=== PATIENT | female | born 1995 | race Caucasian/White ===

== ENCOUNTER 2025-06-30 08:06 | Emergency (ER) | payer OTHER, SELFPAY ==
--- NOTE | 2025-06-30 08:15 | ED_ITS ---
HPI - General Adult General Chief complaint: Skin/Abscess/Foreign Body Stated complaint: Skin/Abscess/Foreign Body Source: patient Mode of arrival: ambulatory Limitations: no limitations History of Present Illness HPI narrative: 30 y/o female presented for c/o spreading rash for about one month. Says it started on her buttock as a round raised bump. Since then has noticed bumps under the breast folds and the left side. Pt says she thought it was ringworm, so she applied lamisil cream which did improve the lesions. Pt states she used [facility] and was informed it is likely fungal and she may require an oral anti fungal as it is still spreading. Pt says she had been working out outside and admits to wearing the clothes more than once. She applied marli tree oil once rash started. Denies lip, tongue, or throat swelling, shortness of breath or wheezing. Denies changes to soap, detergent, lotion, or any other exposures. No one else in the house or any contacts with similar symptoms. Related Data Allergies Allergy/AdvReac Type Severity Reaction Status Date / Time Sulfa (Sulfonamide Allergy Intermediate Hives Verified 06/23/24 08:46 Antibiotics) Review of Systems Review of Systems: CONSTITUTIONAL: Denies body aches, fever, chills, or sweats. EYES: Denies visual changes, redness, or discharge. ENT: Denies rhinorrhea, congestion CARDIOVASCULAR: Denies chest pain, palpitations, or edema. RESPIRATORY: Denies cough or dyspnea. GASTROINTESTINAL: Denies abdominal pain, nausea, vomiting, or diarrhea. SKIN: reports rash MUSCULOSKELETAL: Denies back pain, joint pain, or myalgia. NEUROLOGIC: Denies headache, numbness, tingling, or weakness. 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 Family History Family History (Updated 06/10/24 @ 14:33 by Dyana Paulino CMA) Grandparent Diabetes mellitus Kidney failure Social History Social History (Updated 06/10/24 @ 14:33 by Dyana Paulino CMA) Smoking status: Never smoker Alcohol intake: current Substance use: current Substance use type: marijuana Other substance usage details: rare Do You Feel Safe in your Home?: Yes Lack of Transportation: No Lack of Food: Never True Current Housing: I Have Housing Concerned About Future Housing: No Difficulty Paying Gas/Electric Bills: No Difficulty Paying for Meds: No Currently Unemployed: No Education: Bachelor's Degree Difficulty w/ Childcare or Family Care: No Living arrangements: with family Occupation/Education: occupation 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 Please see nursing chart for further information. There is no relevant family history pertinent to the presenting complaint Exam Narrative: GENERAL: Well-appearing HEAD: Normocephalic, atraumatic. EYES: conjunctivae clear, and EOMI. ENT: Mucous membranes moist. Oropharynx without edema, erythema or lesions. NECK: Supple. No lymphadenopathy CHEST: Clear to auscultation. HEART: Regular rate and rhythm. SKIN: Warm, dry. Scattered skin colored or lightly erythematous papules noted to left side body, right buttock; nontender no drainage. NEURO: Alert and oriented x3. Course Course Emergency Course: Patient is aware of diagnosis, understands and agrees to treatment plan. Anticipatory guidance given. Patient agrees to follow-up as directed and is aware of reasons to seek care at the emergency department. Portions of this record may have been created with voice recognition software Level of Care: Express Care Visit Vital Signs Vital signs: Reviewed Medical Decision Making MDM Narrative Medical decision making narrative: Discussed physical exam findings; shared decision making pt would like to try oral antifungal. States she had a negative home preg test today. Advised supportive measures and signs/symptoms to go to the ER. Pt is appropriate for outpt treatment and f/u. Differential Diagnosis Differential Diagnosis: Viral exanthema, contact dermatitis, allergic dermatitis, eczema, urticaria, insect bites, impetigo, tinea, folliculitis Discharge Plan Discharge Clinical Impression: Dermatitis Patient Disposition: Home Condition: Stable Instructions: Antibiotic Form, Skin Yeast Infection (ED), Dermatitis (ED) Additional Instructions: Wash the area with gentle soap and water only. Avoid fragrance soaps, lotions etc Use skin cream such as Benadryl, hydrocortisone, or calamin as needed to reduce itchiness If you develop itching, Avoid scratching when possible to prevent worsening of the condition and disruption of the skin that could lead to bacterial infection, place a cool washcloth or some ice over the area that itches, rather than scratching Take medication as directed Recommend follow up with dental instrument maker as needed Follow up with primary care provider Go to the ER for any worsening symptoms or concerns Patient Language: Kazakh Prescriptions: New fluconazole 200 mg tablet 200 mg PO WEEKLY 28 Days Qty: 4 0RF Follow-up/Referrals: UNKNOWN,DOCTOR [Non-Staff] -
[2025-06-30 08:23] VITALS: BP 120/70; PULSE 70; RESP 16; TEMP 36.5; O2SAT 100
== END 2025-06-30 08:49 | disposition home or self-care (01) ==
PROVIDERS: Emergency Provider Nurse Practitioner Family
DX: L30.9 Dermatitis, unspecified (principal); F12.90 Cannabis use, unspecified, uncomplicated
CPT/HCPCS: 99213; G0463

== ENCOUNTER 2025-10-19 11:11 | Outpatient (CLI) | payer OTHER, SELFPAY ==
[2025-10-19 11:49] LABS: Hematocrit 37.8 % (37.0-47.0); Hemoglobin 12.9 g/dL (12.0-15.0); Mean Corpuscular HGB Conc 34.1 g/dl (32-36); Mean Corpuscular Hemoglobin 31.2 pg (26-34); Mean Corpuscular Volume 91.3 fl (80-100); Platelet Count Result 210 k/mm3 (150-375); Red Blood Count 4.14 M/mm3 (4.2-5.4); White Blood Count 7.9 K/mm3 (4.5-10.0)
[2025-10-19 12:48] LABS: HIV 1/2 Ab P24 Ag Result Negative (Negative)
[2025-10-19 13:06] LABS: Syphilis IgG/IgM Antibody Non-Reactive (Nonreactive)
[2025-10-19 13:09] LABS: Hepatitis B Surface Antigen Negative (Negative)
[2025-10-20 07:09] LABS: Cytomegalovirus (CMV) Ab, IgG 2.10 U/mL (0.00-0.59); Varicella-Zoster Ab, IgG Reactive (Non Reactive)
[2025-10-22 11:09] LABS: Parvovirus B19, IgG 0.3 index (0.0-0.8); Parvovirus B19, IgM 0.2 index (0.0-0.8)
== END 2025-10-19 11:12 | disposition home or self-care (01) ==
LOC: ANHLAB 11:15
PROVIDERS: Visit Provider Student in an Organized Health Care Education/Training Program
DX: N91.2 Amenorrhea, unspecified (principal)
CPT/HCPCS: 36415; 84702; 85027; 86593; 86644; 86703; 86747; 86762; 86787; 86850; 86900; 86901; 87086; 87186; 87340; G0432